=== PATIENT | female | born 1975 | race African-American/Black ===

== ENCOUNTER 2019-01-06 10:26 | Emergency (ER) | payer OTHER ==
--- OUTSIDE RECORDS SUMMARY | 2019-01-06 10:46 | XMS REPORT | Continuity of Care Document ---
:1975 External Reference #:[id number] Author Name Ramsey Davies Care Team Providers Name Role Phone Michael Tolliver III, MD Primary Care Physician Unavailable Payers Date Identification Numbers Payment Provider Subscriber Effective: 2011 Policy Number: [id number] [employer] Asael Aguayomili Group Number: [id number] [address] PayID: [id number] [place] [address] Expires: 2011 Policy Number: [id number] [employer] Asael Martinez Deirdre Group Number: [id number] [id number] PayID: [id number] [place] [address] Problems Active Problems Provider Date Hypothyroidism Mihir Elena M.D.,FACP Onset: 08/09/2010 Goiter Mihir Elena M.D.,FACP Onset: 08/09/2010 Abnormal cervical Papanicolaou smear Mihir Elena M.D.,FACP Onset: with positive human papillomavirus deoxyribonucleic acid test Gastroesophageal reflux disease Preston Aden M.D. Onset: 01/23/2017 Inactive Problems Hypothyroidism Mihir Elena M.D.,FACP Onset: 07/15/2010 Inactive: 02/17/2012 Non-toxic uninodular goiter Mihir Elena M.D.,FACP Onset: 07/15/2010 Inactive: 02/17/2012 Family History Date Family Member(s) Observation Comments Father Hypercholesterolemia Mother Lupus Mother Thyroid Disease First Sister Thyroid Disease Social History Type Date Description Comments Sex Unknown Marital Status Occupation Teacher Tobacco Use Start: Unknown Never Smoked Cigarettes ETOH Use 12/18/2015 Occasionally consumes wine Tobacco Use Start: Unknown Patient has never smoked Smoking Status Reviewed: 12/26/18 Patient has never smoked Allergies, Adverse Reactions, Alerts Active Allergies Reaction Severity Comments Date Ambien anger issues 01/11/2012 Inactive Allergies NKDA 01/21/2009 Medications Active Medications SIG Qnty Indications Ordering Provider Date Levothyroxine Sodium take 1 tablet by 90tabs E03.9 Kaley Prince MD 2016 mouth every day 75mcg Tablets on empty stomach History Medications Synthroid Take 1 Tablet By 30tabs Mihir Coley 08/09/2016 - 75mcg Mouth Every Day On Freddie Elena,[facility] 05/25/2017 Tablets Empty Stomach Omeprazole 1 by mouth every 30caps R07.9 Mihir Coley 04/04/2016 - 20mg day for 2 wks then Freddie Elena,[facility] 01/23/[address] ascencio Ciprofloxacin HCL 0.25 milliliters 2.500ml H66.002 Mihir Coley 2015 - left ear twice a Freddie Elena,[facility] 01/19/2016 0.3% Solution day for 5 days Ciprofloxacin HCL 0.25 ml Left ear 14units H66.002 Mihir Coley 2015 - q12h for 7 days Freddie Elena,[facility] 04/04/2016 0.2% Solution Levothyroxine Sodium 1 tablet by mouth 30tabs Mihir Coley 08/18/2015 - every day with Freddie Elena,[facility] 08/09/2016 75mcg Tablets empty stomach Levothyroxine Sodium take one tablet by 30tabs Rivera Roper, 05/12/2015 - mouth daily with Freddie 08/18/2015 50mcg Tablets empty stomach Azithromycin two tabs day one, 6tabs J06.9 Rivera Roper, 04/08/2015 - 250mg one daily till M.Vianca 05/12/2015 Tablets gone + Dha 1 po qd 90units 285.9 Mihir Coley 01/11/2012 - Freddie [facility] 04/08/2015 27-1&250mg Misc Trazodone HCL 1-2 po qhs 45tabs Mihir Coley 08/10/2011 - 50mg Freddie Elena,FACP 01/11/2012 Tablets Levothyroxine Sodium 1/2 tab po qd 45tabs Mihir Coley 07/06/2011 - Freddie Elena,FACP 07/02/2013 137mcg Tablets Vitamin D po qd 30caps Mihir Coley 07/06/2011 - 1000Unit Freddie [facility] 11/13/2012 Capsules Zolpidem Tartrate 1/2 to 1 tab qhs 20tabs 780.52 Mihir Coley 02/01/2011 - prn Freddie [facility]ena,[facility] 07/01/2011 10mg Tablets Betamethasone apply bid 50gm 691.8 Preston 07/28/2010 - Valerate Freddie Aden 02/01/2011 0.1% Cream Levothyroxine Sodium 1 tab qam 30tabs Mihir Coley 07/12/2010 - Freddie Elena,[facility] 07/06/2011 75mcg Tablets Iron 1 po bid 180tabs Unknown - 325(65Fe) mg 11/13/2012 Tablets Levothyroxine Sodium 1 po qd 90tabs Unknown - 05/12/2015 75mcg Tablets Amoxicillin 1 by mouth twice a Unknown - 875mg day 04/04/2016 Tablets Medications Administered in Office Medication SIG Qnty Indications Ordering Provider Date PPD Injection Roly Regan NP 08/25/2015 PPD Injection Nurse [facility] 10/09/2013 PPD Injection [facility] 10/25/2011 PPD Injection Nurse [facility] 10/25/2011 Immunizations CPT Code Status Date Vaccine Lot # [id number] Given 04/28/2013 Flu Vaccine NOS [id number] Given 02/10/2011 Influenza Virus 3Yrs & Over [id number] Given 07/09/2010 Influenza Virus 3Yrs & Over [id number] Given 03/10/2009 Influenza Virus 3Yrs & Over [id number] Vital Signs Date Vital Result Comment 12/26/2018 11:59am Height 62 inches 5'2" Weight 139.00 lb Heart Rate 64 /min BP Systolic 115 mmHg BP Diastolic 74 mmHg O2 % BldC Oximetry 97 % BMI (Body Mass Index) 25.4 kg/m2 07/31/2017 1:58pm Weight 135.00 lb BP Systolic 123 mmHg BP Diastolic 68 mmHg Body Temperature 98.2 F 01/23/2017 2:15pm Height 62 inches 5'2" Weight 134.00 lb Heart Rate 61 /min BP Systolic 114 mmHg BP Diastolic 62 mmHg Body Temperature 98.7 F O2 % BldC Oximetry 97 % BMI (Body Mass Index) 24.5 kg/m2 04/04/2016 2:27pm Weight 142.12 lb Heart Rate 50 /min BP Systolic Sitting 118 mmHg BP Diastolic Sitting 70 mmHg Body Temperature 98.4 F O2 % BldC Oximetry 98 % 01/19/2016 4:32pm Weight 137.75 lb Heart Rate 75 /min BP Systolic Sitting 95 mmHg BP Diastolic Sitting 62 mmHg Body Temperature 98.3 F O2 % BldC Oximetry 98 % 12/18/2015 3:23pm Height 62 inches 5'2" Weight 140.50 lb Heart Rate 79 /min BP Systolic 103 mmHg BP Diastolic 68 mmHg Body Temperature 98.9 F O2 % BldC Oximetry 98 % BMI (Body Mass Index) 25.7 kg/m2 08/25/2015 10:30am Height 62 inches 5'2" Weight 133.00 lb Heart Rate 66 /min BP Systolic Sitting 104 mmHg BP Diastolic Sitting 68 mmHg O2 % BldC Oximetry 97 % BMI (Body Mass Index) 24.3 kg/m2 07/30/2015 8:41am Height 62 inches 5'2" Weight 133.25 lb Heart Rate 88 /min BP Systolic Sitting 100 mmHg BP Diastolic Sitting 54 mmHg Body Temperature 97.5 F O2 % BldC Oximetry 98 % BMI (Body Mass Index) 24.4 kg/m2 05/12/2015 9:26am Height 62 inches 5'2" Weight 132.25 lb Heart Rate 72 /min BP Systolic Sitting 102 mmHg BP Diastolic Sitting 58 mmHg Body Temperature 96.9 F O2 % BldC Oximetry 98 % BMI (Body Mass Index) 24.2 kg/m2 04/08/2015 3:41pm Weight 1322.00 lb Heart Rate 97 /min Respiratory Rate 20 /min Body Temperature 98.0 F O2 % BldC Oximetry 98 % 07/02/2013 3:24pm Height 62 inches 5'2" Weight 168.50 lb 8.75 months Heart Rate 80 /min BP Systolic Sitting 100 mmHg BP Diastolic Sitting 64 mmHg BMI (Body Mass Index) 30.8 kg/m2 11/13/2012 3:11pm Weight 132.00 lb Heart Rate 83 /min BP Systolic Sitting 92 mmHg BP Diastolic Sitting 59 mmHg 01/11/2012 4:23pm Height 62 inches 5'2" Weight 134.00 lb Heart Rate 80 /min BP Systolic Sitting 100 mmHg BP Diastolic Sitting 62 mmHg Body Temperature 97.9 F lt ear BMI (Body Mass Index) 24.5 kg/m2 07/01/2011 9:34am Height 62.5 inches 5'2.50" Weight 130.25 lb Heart Rate 76 /min BP Systolic Sitting 90 mmHg BP Diastolic Sitting 60 mmHg BMI (Body Mass Index) 23.4 kg/m2 02/10/2011 9:31am Height 63 inches 5'3" Weight 131.75 lb Heart Rate 92 /min BP Systolic Sitting 102 mmHg BP Diastolic Sitting 70 mmHg BMI (Body Mass Index) 23.3 kg/m2 02/01/2011 1:43pm Height 63 inches 5'3" Weight 133.25 lb Heart Rate 76 /min BP Systolic Sitting 112 mmHg BP Diastolic Sitting 72 mmHg BMI (Body Mass Index) 23.6 kg/m2 08/09/2010 8:48am Heart Rate 78 /min BP Systolic 100 mmHg BP Diastolic 68 mmHg 07/28/2010 3:10pm Height 62 inches 5'2" Heart Rate 80 /min BP Systolic Sitting 104 mmHg BP Diastolic Sitting 70 mmHg 07/09/2010 11:57am Height 62 inches 5'2" Weight 144.00 lb Heart Rate 69 /min BP Systolic Sitting 110 mmHg BP Diastolic Sitting 70 mmHg Body Temperature 98.1 F O2 % BldC Oximetry 100 % BMI (Body Mass Index) 26.3 kg/m2 01/21/2009 2:49pm Height 62 inches 5'2" Weight 136.00 lb Heart Rate 64 /min BP Systolic Sitting 90 mmHg BP Diastolic Sitting 64 mmHg BMI (Body Mass Index) 24.9 kg/m2 Results Test Date Facility Test Result H/L Range Note Laboratory test 05/19/2017 [facility] TSH 0.58 mcIU/mL Normal 0.34-5.[address] ([place] [address] Stim Horm) [phone] Free T4 (Free Thyroxine) 1.02 ng/dL Normal 0.61-1.12 Laboratory 04/07/2016 [facility] TSH (Thyroid 0.49 Normal 0.34 -5.60 test finding [address] Stim Horm) mcIU/[place] [address] [phone] Free T4 (Free Thyroxine) 1.00 ng/dL Normal 0.61-1.12 Laboratory 07/22/2015 [facility] TSH (Thyroid 0.65 Normal 0.34 -5.60 test finding [address] Stim Horm) ?IU/[place] [address] [phone] Laboratory 05/06/2015 [facility] TSH (Thyroid 0.61 Normal 0.34 -5.60 test finding [address] Stim Horm) ?IU/[place] [address] [phone] Laboratory 08/21/2013 [facility] TSH (Thyroid 0.37 Normal 0.34 -5.60 test finding [address] Stimulating IU/[place] [address] Horm) [phone] CBC No Diff 07/10/2013 [facility] White Blood 7.3 4.8-10.8 DRIVE Count 10^3/[place] [address] [phone] Red Blood Count 4.39 10^6/uL 4.0-5.4 Hemoglobin 12.2 g/dL 12.0-16.0 Hematocrit 37 % 35-47 Mean Corpuscular Volume 85 fL 80-97 Mean Corpuscular Hemoglobin 28 pg 27-31 Mean Corpuscular HGB Conc 33 g/dL 31-36 Red Cell Distribution Width 15 % 10.5-15 Platelet Count 176 10^3/uL 150-450 Mean Platelet Volume 8 um3 7.4-10.4 Type & Screen 07/10/2013 [facility] Patient Blood Type [place] [address] [phone] Antibody Screen NEGATIVE Laboratory test 06/27/2013 [facility] Hemoglobin 0.[address] [place] [address] [phone] Laboratory test 05/15/2013 [facility] Amnisure No Membrane [address] Rupt <[place] [address] NOTE> [phone] Laboratory test 04/23/2013 [facility] Free T4 0.86 ng/mL 0.61 - [address] 1.24 [place] [address] [phone] TSH (Thyroid Stimulating Horm) 0.70 miu/mL 0.34-5.60 Laboratory test 01/22/2013 [facility] Free T4 0.82 ng/mL 0.61 -1.[address] [place] [address] [phone] TSH (Thyroid Stimulating Horm) 0.77 miu/mL 0.34-5.60 Thyroid Peroxidase Antibodies 0.4 IU/mL Less Than 9.0 Laboratory 11/13/2012 [facility] TSH (Thyroid 0.91 0.34-5.60 test finding Stimulating miu/[place] [address] Horm) [phone] Cytology 02/13/2012 [facility] Cytology [address] ------ [place] [address] <SEE NOTE> [phone] Lipid Profile 11/15/2011 [facility] Triglyceride 23 mg/dL Low 40-200 (Trig/Chol/HDL ) [place] [address] [phone] Cholesterol 185 mg/dL Less Than 200 4 High Density Lipoprotein 81 mg/dL High 40-60 5 Cholesterol/HDL Ratio 2.28 AVERAGE 1-4.44 Low Density Lipoprotein 99 mg/dL Less Than 100 6 Laboratory test finding 11/15/2011 [facility] Glucose 86 mg/dL 70-[address] [place] [address] [phone] TSH 1.11 MIU/ML 0.34-5.60 Comp Metabolic Panel 07/01/2011 [facility] Sodium 137 mmol/L 135-[address] [place] [address] [phone] Potassium 3.7 mmol/L 3.5-5.0 Chloride 104 mmol/L 101-111 Co2 (Carbon Dioxide) 28.0 mmol/L 22-32 Anion Gap 5.0 mmol/L 2-11 7 Glucose 62 mg/dL Low 70-100 BUN 12 mg/dL 6-24 Creatinine 0.6 mg/dL 0.50-1.40 One Over Creatinine 1.66 BUN/Creatinine Ratio 20.0 8-20 Calcium 8.7 mg/dL 8.1-9.9 Total Protein 6.9 GM/DL 6.2-8.1 Albumin 4.1 GM/DL 3.6-5.4 Globulin 2.8 GM/DL 2-4 Albumin/Globulin Ratio 1.5 1-3 Bilirubin Total 0.7 mg/dL 0.4-1.5 8 Alkaline Phosphatase 58 U/L 30-110 Alt (SGPT) 14 U/L 14-54 Ast (Sgot) 18 U/L 12-42 eGFR Non- 113.8 > 60 eGFR 146.3 > 60 9 Laboratory test 07/01/2011 [facility] Vitamin B12 478 pg/mL 180-[address] [place] [address] [phone] Vitamin D, 25 07/01/2011 [facility] 25-Hydroxy <4.0 ng/mL () Hydroxy [address] Vitamin D2 [place] [address] [phone] 25-Hydroxy Vitamin D3 24 ng/mL () 25-Hydroxy Vitamin D Total 24 ng/mL Abnormal () 10 Laboratory test 07/01/2011 [facility] TSH 0.27 MIU/ML Low 0.34 -5.[address] [place] [address] [phone] Thyroxine Free 0.98 ng/dL 0.61-1.24 T3 Total 1.10 NG/ML 0.5-1.7 CBC Auto Diff 07/01/2011 [facility] White Blood 3.7 CUMM Low 4.8-10.[address] [place] [address] [phone] Red Cell Count 4.10 CUMM Low 4.2-5.4 Hemoglobin 11.8 g/dL Low 12.0-16.0 Hematocrit 34 % Low 35-47 Mean Corpuscular Volume 83 um3 79-97 Mean Corpuscular Hemoglob 29 pg 27-31 Mean Corpuscular HGB Cone 35 g/dL 32-36 Redcell Distribution WDTH 14 % 10.5-15 Platelet Count 245 CUMM 150-450 Mean Platelet Volume 8.3 um3 7.4-10.4 Gran % 51.6 % 38-83 Lymph % 39.5 % 25-47 Mononuclear % 5.3 % 1-9 Eosinophil % 3.2 % 0-6 Basophil % 0.4 % 0-2 Abs Lymphs 1.5 1.0-4.8 Abs Mononuclear 0.2 0-0.8 Absolute Neutrophil Count 1.9 1.5-7.7 Abs Eosinophils 0.1 0-0.6 Abs Basophils 0 0-0.2 Laboratory test 07/01/2011 [facility] CPK (Creatine 70 U/L 0- [address] Kinase) [place] [address] [phone] Cytology 02/07/2011 [facility] Cytology -------- [address] -------- [place] [address] <SEE [phone] NOTE> Laboratory test 02/01/2011 [facility] TSH 2.74 0.34-5.[address] MIU/[place] [address] [phone] Thyroxine Free 0.99 ng/dL 0.61-1.24 Laboratory test 08/31/2010 [facility] TSH 1.52 MIU/ML 0.34- 5.[address] [place] [address] [phone] Thyroxine Free 0.92 ng/dL 0.61-1.24 Laboratory test 07/09/2010 [facility] TSH 96.55 MIU/ML High 0.34-5.[address] [place] [address] [phone] Thyroxine Free 0.19 NG/ML Low 0.61-1.24 CBC With 07/09/2010 [facility] White Blood 7.0 CUMM 4.8-10.[address] [place] [address] [phone] Red Cell Count 4.53 CUMM 4.2-5.4 Hemoglobin 12.4 g/dL 12.0-16.0 Hematocrit 37 % 35-47 Mean Corpuscular Volume 81 um3 79-97 Mean Corpuscular Hemoglob 27 pg 27-31 Mean Corpuscular HGB Cone 34 g/dL 32-36 Redcell Distribution WDTH 15 % 10.5-15 Platelet Count 256 CUMM 150-450 Mean Platelet Volume 7.9 um3 7.4-10.4 Gran % 64.9 % 38-83 Lymph % 26.6 % 25-47 Mononuclear % 5.5 % 1-9 Eosinophil % 2.6 % 0-6 Basophil % 0.4 % 0-2 Abs Lymphs 1.9 1.0-4.8 Abs Mononuclear 0.4 0-0.8 Absolute Neutrophil Count 4.5 1.5-7.7 Abs Eosinophils 0.2 0-0.6 Abs Basophils 0 0-0.2 Laboratory test 07/09/2010 [facility] Erythrocyte Sed 20 MM/HR High 0-[address] [place] [address] [phone] Hemoglobin Interpretation: % Cells Volume of Maternal Hemorrhage 0.0 - 0.0045 Up to 15 ml 0.0046 - 0.0090 15 - 30 ml 0.0091 - 0.0135 30 - 45 ml 0.0136 - 0.0180 45 - 60 ml 0.0181 - 0.0225 60 - 75 ml 2 No Membrane Rupture 3 --- RUN DATE: 02/17/12 [facility] NMI LIVE PAGE 1 RUN TIME: 818 Specimen Inquiry RUN USER: INTERFACE -- Name: VICTOR M CARY Status: REG REF Re02/13/12 Age/Sex: 36/F Unit#: [id number] Location: [facility] : 77 -- Specimen: [id number] SOUT Spec Date:02/13/12-[address]: Gabino Urias do, MD Spec Type: CYTOLOGY Received:02/14/12 Copies to: Mihir lucas MD SOURCE ECTOCERVICAL/ENDOCERVICAL Thin Prep with Reflex HPV Test PATIENT INFORMATION ACTUAL COLLECTION DATE: 02/13/12 ? No POST MENOPAUSAL? No HYSTERECTOMY? No PREVIOUS ABNORMAL PAP SMEARS No LAST MENSTRUAL PERIOD: 01/30/12 ADEQUACY OF SPECIMEN Satisfactory for evaluation * Transformation zone component identified * DIAGNOSIS NEGATIVE FOR INTRAEPITHELIAL LESION OR MALIGNANCY * NOTE Specimen sent to [facility] in [place], [place] on 02/14/12 by DB at 1224. Results will be reported separately in an addendum. ADDENDUM Addendum #1 Entered: 02/17/12 [facility] Human Papilloma Virus test results received with preparation and diagnosis completed by [facility], [place], [place]. Results: POSITIVE High Risk (for one or more of types 16, 18, 31, 33, 35, 39, 45, 51, 52, 56, 58, 59, 68) -- DEPARTMENT OF PATHOLOGY, [address] [place] [address] [facility] Permit #[id number] Trevin Renee M.D. Director Liyah Lizama M.D. K 12 Principal Dir sebastian -- -- RUN DATE: 02/17/12 [facility] NMI LIVE PAGE 2 RUN TIME: 818 Specimen Inquiry RUN USER: INTERFACE -- Name: VICTOR M CARY Status: REG REF Re02/13/12 Age/Sex: 36/F Unit#: [id number] Location: [facility] : 76 -- -- CONTINUED -- ADDENDUM (Continued) These high/indeterminate risk HPV types are associated with dysplasia and some cervical cancers. This test was developed and its performance characteristics determined by Laboratory Medicine and Pathology, [facility], [place], [place]. It has not been cleared or approved by the U.S. Food and Drug Administration. Test Performed by: [facility] Dpt of Lab Med and Pathology [address] [place] [address] [employer] Mechanic: Kyle Lindsey III, M.D. Original hard copy report from [facility] is available upon request by calling Pathology at [phone]. Addendum Review Jony WHITTINGTON([facility]) 02/17/12 -- This Pap test was evaluated with the assistance of the BaiduPrep Pap Test Imaging System. The Pap Smear is a screening test designed to aid in the detection of premalign ant and malignant conditions of the uterine cervix. It is not a diagnostic procedure a nd should not be used as the sole means of detecting cervical cancer. Both false- positiv e and false-negative reports do occur. Depending on your risk status, a Pap smear dianne uld be obtained and evaluated every one to three years. Final Interpretation electronically signed by: Joaquin ALEXANDRA([facility]) 02/14/12 142 2 -- -- DEPARTMENT OF PATHOLOGY, [address] [place] [address] [facility] Permit #[id number] Freddie Freeman M.D. Assistant Dir ector -- 4 CHOLESTEROL INTERPRETATION: Desirable: Less than 200 MG/DL Borderline-High Risk: 200-239 MG/DL High-Risk: 240 MG/DL and over 5 HDL INTERPRETATION: Undesirable: High Risk: Less than 40 MG/DL Desirable: Low Risk: Greater than 60 MG/DL 6 LDL INTERPRETATION: Low Risk Optimal Level: LDL Less than 100 MG/DL Near or Above Optimal: LDL 100-129 MG/DL Borderline High Risk: LDL 130-159 MG/DL High Risk: LDL 160-189 MG/DL Very High Risk: LDL Greater than 189 MG/DL 7 Anion gap measurement may be of limited value in the presence of any alkalosis, especially in a combined acid base disorder. . 8 A metabolite of Naproxen, O-desmethylnaproxen, has been shown to interfere with the Jendrassik-Chula method for measuring total bilirubin. Samples from patients who have taken Naproxen have shown spurious elevation in total bilirubin levels. 9 Because ethnic data is not always readily available, this report includes an eGFR for both -Americans and non- Americans. The National Kidney Disease Education Program (NKDEP) does not endorse the use of the MDRD equation for patients that are not between the ages of 18 and 70, are , have extremes of body size, muscle mass, or nutritional status, or are non- or non-. According to the National Kidney Foundation, irrespective of diagnosis, the stage of the disease is based on the level of kidney function: Stage Description GFR(mL/min/1.73 m(2)) 1 Kidney damage with normal or decreased GFR 90 2 Kidney damage with mild decrease in GFR 60-89 3 Moderate decrease in GFR 30-59 4 Severe decrease in GFR 15-29 5 Kidney failure <15 (or dialysis) 10 Interpretation: 10-24 (mild to moderate deficiency) -- REFERENCE VALUE -- 25-HYDROXY D TOTAL (D2+D3) Optimum levels in the normal population are 25-80 Test Performed by: [facility] Dpt of Lab Med and Pathology [address] [place] [address] [employer] Mechanic: Kyle Lindsey III, M.D. 11 ---- RUN DATE: 02/14/11 [facility] NMI LIVE PAGE 1 RUN TIME: 846 Specimen Inquiry RUN USER: INTERFACE -- Name: VICTOR M CARY Status: REG REF Re02/07/11 Age/Sex: 35/F Unit#: [id number] Location: [facility] : 76 -- Specimen: [id number] SOUT Spec Date: 02/07/[address]: Gabino wallace MD Spec Type: CYTOLOGY Received: 02/08/11-32 Copies to: Mihir lucas MD SOURCE ECTOCERVICAL/ENDOCERVICAL Thin Prep with Reflex HPV Test PATIENT INFORMATION ACTUAL COLLECTION DATE: 02/07/11 ? No POST MENOPAUSAL? No HYSTERECTOMY? No PREVIOUS ABNORMAL PAP SMEARS No LAST MENSTRUAL PERIOD: 01/24/11 ADEQUACY OF SPECIMEN Satisfactory for evaluation * Transformation zone component identified * DIAGNOSIS NEGATIVE FOR INTRAEPITHELIAL LESION OR MALIGNANCY * NOTE Specimen sent to [facility] in [place], [place] on 02/08/11 by O at 1108. Results will be reported separately in an addendum. ADDENDUM Addendum #1 Entered: 02/14/1180 [facility] Human Papilloma Virus test results received with preparation and diagnosis completed by [facility], [place], [place]. Results: NEGATIVE High Risk (for types 16, 18, 31, 33, 35, 39, 45, 51, 52, 56, 58, 59, 68) This test was developed and its performance characteristics determined by -- DEPARTMENT OF PATHOLOGY, [address] [place] [address] [facility] Permit #[id number] Freddie Freeman M.D. K 12 Principal Dir sebastian -- -- RUN DATE: 02/14/11 [facility] NMI LIVE PAGE 2 RUN TIME: 1022 Specimen Inquiry RUN USER: INTERFACE -- Name: VICTOR M CARY Status: REG REF Re02/07/11 Age/Sex: 35/F Unit#: [id number] Location: [facility] : 76 -- -- CONTINUED -- ADDENDUM (Continued) Laboratory Medicine and Pathology, [place], [place]. It has not been cleared or approved by the U.S. Food and Drug Administration. Test Performed by: [facility] Dpt of lab Med and Pathology [address] [place] [address] [employer] Mechanic: Kyle Lindsey III, M.D. Original hard copy report from [facility] is available upon request by calling Pathology at [phone]. Addendum Review Jony WHITTINGTON([facility]) 02/14/11 -- This Pap test was evaluated with the assistance of the ThinPrep Pap Test Imaging System. The Pap Smear is a screening test designed to aid in the detection of premalign ant and malignant conditions of the uterine cervix. It is not a diagnostic procedure a nd should not be used as the sole means of detecting cervical cancer. Both false- positiv e and false-negative reports do occur. Depending on your risk status, a Pap smear dianne uld be obtained and evaluated every one to three years. Initial evaluation performed by Jony WHITTINGTON([facility]) 02/08/11 Final Interpretation electronically signed by: Jony WHITTINGTON CT([facility]) 02/08/11 1410 -- -- DEPARTMENT OF PATHOLOGY, [address] [place] [address] [facility] Permit #[id number] Trevin Renee M.D. Director Liyah Lizama M.D. K 12 Principal Dir sebastian -- Procedures Date Code Description Status 04/04/2016 30423 EKG Tracing & Interpretation Completed Encounters Type Date Location Provider Dx Diagnosis Office Visit 07/31/2017 [facility] Jennifer Marie, B34.9 Viral infection, 2:00p Medicine - Suite ANIMAL CARE ASSISTANT unspecified R Office Visit 01/23/2017 [facility] Preston Aden, E03.9 Hypothyroidism, 2:00p Medicine - Suite M.DRaúl unspecified R Z00.00 Encntr for general adult medical exam w/o abnormal findings K21.9 Gastro-esophageal reflux disease without esophagitis Office Visit 04/04/2016 2:20p [facility] Mihir Coley R07.9 Chest pain, Evaristo Elena M.D.,FACP unspecified Suite R R13.14 Dysphagia, pharyngoesophageal phase Office Visit 01/19/2016 4:20p [facility] Mihir Coley H66.012 Acute suppr Evaristo Elena M.D.,FACP [facility], [facility] Office Visit 12/18/2015 3:00p [facility] Mihir Coley E03.9 Hypothyroidism, Evaristo Elena M.D.,FACP unspecified Suite R Office Visit 08/25/2015 10:40a [facility] Roly Regan, Z02.1 Encounter for Medicine - ANIMAL CARE ASSISTANT pre-employment Suite R examination E03.9 Hypothyroidism, unspecified Z11.1 Encounter for screening for respiratory tuberculosis Office Visit 07/30/2015 8:40a [facility] Rivera Roper, E03.8 Other specified Medicine - M.D. hypothyroidism [address] E03.9 Hypothyroidism, unspecified Office Visit 05/12/2015 9:20a [facility] Rivera Roper, E03.8 Other specified Medicine - M.D. hypothyroidism [address] E03.9 Hypothyroidism, unspecified Office Visit 04/08/2015 3:40p [facility] Rivera Roper, J06.9 Acute upper Medicine - Suite M.D. respiratory R infection, unspecified E03.8 Other specified hypothyroidism E03.9 Hypothyroidism, unspecified Office Visit 07/02/2013 3:30p [facility] Danay Connolly, 692.2 Dermatitis & Other Medicine - N.P. Eczema Contact Due [facility] To Solvents Office Visit 11/13/2012 3:10p [facility] Stacia Glaser, 244.8 Hypothyroidism Other Medicine - [facility] 01/11/2012 4:00p [facility] Mihir Coley V70.0 Examination General Evaristo Elena M.D.,FACP Medical Routine AT [facility] 244.8 Hypothyroidism Other Spec 285.9 Anemia Unspec Office Visit 10/25/2011 10:00a [facility] Nurse Visit V74.1 Screening Medicine - Creek Examination [facility] Pulmonary Tuberculosis Office Visit 07/01/2011 9:40a [facility] Mihir Coley 728.87 Muscle Weakness Medicine - [place] [facility] 780.79 Malaise And Fatigue Other 244.8 Hypothyroidism Other Spec Office Visit 02/10/2011 8:50a DO Not Use Operations Consultant Mihir Coley 780.52 Insomnia AT [facility] Freddie Elena,FACP Unspecified 592.0 Calculus Of Kidney V04.81 Need For Prophylactic Vaccination & Inoculation/Influenza Office Visit 02/01/2011 1:45p DO Not Use Operations Consultant Danay Connolly, 780.52 Insomnia AT [facility] N.P. Unspecified 244.8 Hypothyroidism Other Spec Office Visit 08/09/2010 8:40a DO Not Use Operations Consultant Mihir Coley 244.8 Hypothyroidism Other AT [facility] Freddie Elena,FACP Spec 240.9 Goiter Unspec Office Visit 07/28/2010 3:00p DO Not Use Operations Consultant Preston Aden, 691.8 Dermatitis AT [facility] Freddie Atopic & Related Conditions Other Office Visit 07/09/2010 11:40a DO Not Use Operations Consultant Mihir Coley 079.99 Viral Infection AT [facility] Freddie Elena,FACP Unspec 242.00 Goiter Toxic Diffuse W/O Thyrotoxic Crisis Or Storm V04.81 Need For Prophylactic Vaccination & Inoculation/Influenza Office Visit 01/21/2009 3:00p DO Not Use Operations Consultant Evonne Smith PA 724.5 Backache Unspec AT [facility] 009.0 Infectious Colitis Enteritis & Gastroenteritis Plan of Treatment Future Appointment(s):06/05/2019 2:40 pm - MELCHOR Yuan at [facility] - LACY YuanPE03.9 Hypothyroidism, unspecifiedComments:Symptoms of low thyroid level (hypothyroidism)When thyroid hormone levels are too low, the body??s cells can??t get enough thyroid hormone and the body??s processes start slowing down. As the body slows, you may feel colder, tire more easily, your skin gets drier tender, you may become forgetful and depressed, and get constipated.Follow up:Pt needs yearly PE at her convenience.R14.3 FlatulenceComments:Discussed that likely treated to some food sensitivity.Try eliminating certain food groups as we discussed to see if symptoms improveIf no effect, please give me a call and I order some lab test to rule out infection Follow up with Dr. Mckeon for gynecological exam
[2019-01-06 12:00] LABS: ABS Eosinophils 0.1 10^3/ul (0-0.6); ABS Lymphocytes 1.1 10^3/ul (1.0-4.8); ABS Monocytes 0.2 10^3/ul (0-0.8); ABS Neutrophils 3.1 10^3/ul (1.5-7.7); Eosinophil % 2.2 %; Hematocrit 36 % (35-47); Hemoglobin 11.8 g/dL (12.0-16.0); Mean Corpuscular HGB Conc 33 g/dL (31-36); Mean Corpuscular Hemoglobin 27 pg (27-31); Mean Corpuscular Volume 84 fL (80-97); Mean Platelet Volume 7.3 fL (7.4-10.4); Nucleated Red Blood Cells % 0.1; Platelet Count 239 10^3/uL (150-450); Red Blood Count 4.31 10^6 /uL (3.70-4.87); Red Cell Distribution Width 14 % (10-15); White Blood Count 4.5 10^3/uL (3.5-10.8)
[2019-01-06 12:17] LABS: Activated Partial Thrombo Time 38.9 seconds (26.0-38.0); Albumin 4.3 g/dL (3.2-5.2); Albumin/Globulin Ratio 1.5 (1-3); BUN/Creatinine Ratio 18.5 (8-20); Calcium 9.4 mg/dL (8.6-10.3); EGFR African American 120.9 (>60); Globulin 2.9 g/dL (2-4); Magnesium 1.8 mg/dL (1.9-2.7); Potassium 3.6 mmol/L (3.5-5.0); Total Bilirubin 0.7 mg/dL (0.2-1.0); Total Protein 7.2 g/dL (6.4-8.9)
[2019-01-06 12:24] LABS: HCG Pregnancy < 0.60 mIU/mL
--- NOTE | 2019-01-06 12:40 | ED ---
HPI Chest Pain - HPI Summary HPI Summary: This patient is a 43 year old F presenting to ED with a chief complaint of mid- sternal CP and tightness since two days ago. The CP begins on her anterior ribs , and radiates across to the back. Patient states she feels like her chest is being compressed and that it feels tight. She reports earlier she could not take deep breaths due to pain. Previous to the CP, patient reports having abdominal bloating, but denies vomiting or diarrhea. The patient rates the pain 7/10 in severity, sharp and pleuritic. Symptoms aggravated by sitting up. Symptoms alleviated by nothing. Patient reports mild SOB secondary to inability to take a full breath. Patient denies congestion, cough, fever, recent illness. Denies history of DVT, PE, MO, CHF. Patient reports a family history of lupus Patient is not on control. - History of Current Complaint Chief Complaint: EDChestPainROMI Time Seen by Provider: 01/06/19 11:29 Hx Obtained From: Patient Onset/Duration: Started Days Ago - 2 days, Still Present Timing: Constant, Lasting Days - Since 2 days ago Initial Severity: Moderate Current Severity: Moderate Pain Intensity: 7 Pain Scale Used: 0-10 Numeric Chest Pain Location: Mid Sternal Chest Pain Radiates: Yes Chest Pain Radiates To:: Back Character: Tightness Aggravating Factor(s): Position - Sitting up Alleviating Factor(s): Nothing Associated Signs and Symptoms: Positive: Chest Pain, Shortness of Breath, Abdominal Pain - Bloating - Allergy/Home Medications Allergies/Adverse Reactions: Allergies Allergy/AdvReac Type Severity Reaction Status Date / Time No Known Allergies Allergy Verified 07/10/13 15:30 PMH/Surg Hx/FS Hx/Imm Hx Endocrine/Hematology History: Reports: Hx Thyroid Disease Sensory History: Denies: Hx Legally Blind, Hx Deafness Opthamlomology History: Denies: Hx Legally Blind EENT History: Denies: Hx Deafness Infectious Disease History: No Infectious Disease History: Denies: Traveled Outside the [place] in Last 30 Days - Family History Known Family History: Positive: Other - Lupus, HLD, negative DVT/PE - Social History Alcohol Use: None Hx Substance Use: No Substance Use Type: Reports: None Hx Tobacco Use: No Smoking Status (MU): Never Smoked Tobacco Review of Systems Positive: Chest Pain - Mid-sternal Positive: Shortness Of Breath Positive: Abdominal Pain - Bloating All Other Systems Reviewed And Are Negative: Yes Physical Exam - Summary Physical Exam Summary: Constitutional: Well-developed, Well-nourished, Alert. (-) Distressed Skin: Warm, Dry HENT: Normocephalic; Atraumatic Eyes: Conjunctiva normal Neck: Musculoskeletal ROM normal neck. (-) JVD, (-) Stridor, (-) Nuchal rigidity Cardio: Rhythm regular, rate normal, Heart sounds normal; Intact distal pulses; Radial pulses are 2+ and symmetric. (-) Murmur Pulmonary/Chest wall: Effort normal. (-) Respiratory distress, (-) Wheezes, (-) Rales Abd: Soft, (-) tenderness, (-) Distension, (-) Guarding, (-) Rebound Musculoskeletal: (-) Edema Lymph: (-) Cervical adenopathy Neuro: Alert, Oriented x3 Psych: Mood and affect Normal Triage Information Reviewed: Yes Vital Signs On Initial Exam: Initial Vitals Temp Pulse Resp BP Pulse Ox 98.0 F 88 16 121/66 98 01/06/19 10:36 01/06/19 10:36 01/06/19 10:36 01/06/19 10:36 01/06/19 10:36 Vital Signs Reviewed: Yes Diagnostics - Vital Signs Vital Signs Temp Pulse Resp BP Pulse Ox 01/06/19 11:27 68 20 98 01/06/19 10:36 98.0 F 88 16 121/66 98 - Laboratory Lab Results: Lab Results 01/06/19 01/06/19 01/06/19 Range/Units 11:49 11:49 11:49 WBC 4.5 (3.5-10.8) 10^3/uL RBC 4.31 (3.70-4.87) 10^6 /uL Hgb 11.8 L (12.0-16.0) g/dL Hct 36 (35-47) % MCV 84 (80-97) fL MCH 27 (27-31) pg MCHC 33 (31-36) g/dL RDW 14 (10-15) % Plt Count 239 (150-450) 10^3/uL MPV 7.3 L (7.4-10.4) fL Neut % (Auto) 68.4 % Lymph % (Auto) 24.0 % Arthur % (Auto) 5.1 % Eos % (Auto) 2.2 % Baso % (Auto) 0.3 % Absolute Neuts (auto) 3.1 (1.5-7.7) 10^3/ul Absolute Lymphs (auto) 1.1 (1.0-4.8) 10^3/ul Absolute Monos (auto) 0.2 (0-0.8) 10^3/ul Absolute Eos (auto) 0.1 (0-0.6) 10^3/ul Absolute Basos (auto) 0.0 (0-0.2) 10^3/ul Absolute Nucleated RBC 0.0 10^3/ul Nucleated RBC % 0.1 INR (Anticoag Therapy) 1.00 (0.82-1.09) APTT (26.0-38.0) seconds D-Dimer, Quantitative (Less Than 230) ng/mL Sodium 136 (135-145) mmol/L Potassium 3.6 (3.5-5.0) mmol/L Chloride 102 (101-111) mmol/L Carbon Dioxide 29 (22-32) mmol/L Anion Gap 5 (2-11) mmol/L BUN 12 (6-24) mg/dL Creatinine 0.65 (0.51-0.95) mg/dL Est GFR ( Amer) 120.9 (>60) Est GFR (Non-Af Amer) 100.0 (>60) BUN/Creatinine Ratio 18.5 (8-20) Glucose 103 H (70-100) mg/dL Lactic Acid (0.5-2.0) mmol/L Calcium 9.4 (8.6-10.3) mg/dL Magnesium (1.9-2.7) mg/dL Total Bilirubin 0.70 (0.2-1.0) mg/dL AST 17 (13-39) U/L ALT 15 (7-52) U/L Alkaline Phosphatase 53 (34-104) U/L Troponin I 0.00 (<0.04) ng/mL B-Natriuretic Peptide (<=100) pg/mL Total Protein 7.2 (6.4-8.9) g/dL Albumin 4.3 (3.2-5.2) g/dL Globulin 2.9 (2-4) g/dL Albumin/Globulin Ratio 1.5 (1-3) Beta HCG, Quant mIU/mL 01/06/19 01/06/19 01/06/19 Range/Units 11:49 11:49 11:49 WBC (3.5-10.8) 10^3/uL RBC (3.70-4.87) 10^6 /uL Hgb (12.0-16.0) g/dL Hct (35-47) % MCV (80-97) fL MCH (27-31) pg MCHC (31-36) g/dL RDW (10-15) % Plt Count (150-450) 10^3/uL MPV (7.4-10.4) fL Neut % (Auto) % Lymph % (Auto) % Arthur % (Auto) % Eos % (Auto) % Baso % (Auto) % Absolute Neuts (auto) (1.5-7.7) 10^3/ul Absolute Lymphs (auto) (1.0-4.8) 10^3/ul Absolute Monos (auto) (0-0.8) 10^3/ul Absolute Eos (auto) (0-0.6) 10^3/ul Absolute Basos (auto) (0-0.2) 10^3/ul Absolute Nucleated RBC 10^3/ul Nucleated RBC % INR (Anticoag Therapy) (0.82-1.09) APTT 38.9 H (26.0-38.0) seconds D-Dimer, Quantitative < 200 (Less Than 230) ng/mL Sodium (135-145) mmol/L Potassium (3.5-5.0) mmol/L Chloride (101-111) mmol/L Carbon Dioxide (22-32) mmol/L Anion Gap (2-11) mmol/L BUN (6-24) mg/dL Creatinine (0.51-0.95) mg/dL Est GFR ( Amer) (>60) Est GFR (Non-Af Amer) (>60) BUN/Creatinine Ratio (8-20) Glucose (70-100) mg/dL Lactic Acid 1.0 (0.5-2.0) mmol/L Calcium (8.6-10.3) mg/dL Magnesium 1.8 L (1.9-2.7) mg/dL Total Bilirubin (0.2-1.0) mg/dL AST (13-39) U/L ALT (7-52) U/L Alkaline Phosphatase (34-104) U/L Troponin I (<0.04) ng/mL B-Natriuretic Peptide (<=100) pg/mL Total Protein (6.4-8.9) g/dL Albumin (3.2-5.2) g/dL Globulin (2-4) g/dL Albumin/Globulin Ratio (1-3) Beta HCG, Quant < 0.60 mIU/mL 01/06/19 Range/Units 11:49 WBC (3.5-10.8) 10^3/uL RBC (3.70-4.87) 10^6 /uL Hgb (12.0-16.0) g/dL Hct (35-47) % MCV (80-97) fL MCH (27-31) pg MCHC (31-36) g/dL RDW (10-15) % Plt Count (150-450) 10^3/uL MPV (7.4-10.4) fL Neut % (Auto) % Lymph % (Auto) % Arthur % (Auto) % Eos % (Auto) % Baso % (Auto) % Absolute Neuts (auto) (1.5-7.7) 10^3/ul Absolute Lymphs (auto) (1.0-4.8) 10^3/ul Absolute Monos (auto) (0-0.8) 10^3/ul Absolute Eos (auto) (0-0.6) 10^3/ul Absolute Basos (auto) (0-0.2) 10^3/ul Absolute Nucleated RBC 10^3/ul Nucleated RBC % INR (Anticoag Therapy) (0.82-1.09) APTT (26.0-38.0) seconds D-Dimer, Quantitative (Less Than 230) ng/mL Sodium (135-145) mmol/L Potassium (3.5-5.0) mmol/L Chloride (101-111) mmol/L Carbon Dioxide (22-32) mmol/L Anion Gap (2-11) mmol/L BUN (6-24) mg/dL Creatinine (0.51-0.95) mg/dL Est GFR ( Amer) (>60) Est GFR (Non-Af Amer) (>60) BUN/Creatinine Ratio (8-20) Glucose (70-100) mg/dL Lactic Acid (0.5-2.0) mmol/L Calcium (8.6-10.3) mg/dL Magnesium (1.9-2.7) mg/dL Total Bilirubin (0.2-1.0) mg/dL AST (13-39) U/L ALT (7-52) U/L Alkaline Phosphatase (34-104) U/L Troponin I (<0.04) ng/mL B-Natriuretic Peptide 38 (<=100) pg/mL Total Protein (6.4-8.9) g/dL Albumin (3.2-5.2) g/dL Globulin (2-4) g/dL Albumin/Globulin Ratio (1-3) Beta HCG, Quant mIU/mL Result Diagrams: 01/06/19 11:49 01/06/19 11:49 Lab Statement: Any lab studies that have been ordered have been reviewed, and results considered in the medical decision making process. - Radiology CXR Radiology Interpretation Completed By: Radiologist Summary of Radiographic Findings: No evidence for acute intrathoracic disease. Dr. Sung has reviewed this radiology report. - EKG 1029 Cardiac Rate: NL - 71 BPM EKG Rhythm: Sinus Rhythm Summary of EKG Findings: NSR at 71 BPM, T wave inversion in V1. Re-Evaluation - Re-Evaluation First Eval Re-Evaluation Time: 13:31 Comment: Discussed results with patient. Mg repleted. Given toradol for possible MSK pain. Patient will be discharged home with dx of pleuritic CP. Patient understands and agrees with this plan. Advised patient on concerning symptoms and gave return precautions. Chest Pain Course/Dx - Course Course Of Treatment: 43 y/o F p/w pleuritic CP. Chest Pain DDX: The patient is well appearing, with stable vitals. Given the patient's clinical presentation, highest on differential is atypical CP. Although less likely, differential also includes the following: --Pneumothorax: Equal breath sounds, story inconsistent since gradual onset of symptoms. CXR shows no evidence of pneumothorax. Unlikely. --Mediastinitis or esophageal rupture: The history is not consistent, as the patient has had no recent history of significant wretching, instrumentation, or mediastinal surgeries. Unlikely. --Aortic dissection: The patient does not describe the classical tearing chest pain radiating into the back, and the CXR does not show mediastinal widening or other signs of aortic dissection. Unlikely. --PE: Vitals wnl (not hypoxic, tachycardic or tachypneic). D dimer <200. --ACS: The initial EKG shows no ischemic changes. The initial troponin is not elevated. -- pericarditis: She denies alleviation of symptoms with laying flat, only minimal aggravation of symptoms with sitting up, no recent illnesses to suggest pericarditis, no friction rub on exam. No ST elevation on EKG - Diagnoses Provider Diagnoses: Pleuritic chest pain Discharge - Sign-Out/Discharge Documenting (check all that apply): Patient Departure - Discharge Patient Received Moderate/Deep Sedation with Procedure: No - Discharge Plan Condition: Stable Disposition: HOME Patient Education Materials: Chest Pain (ED) Referrals: Mihir Elena MD [Primary Care Provider] - 3 Days Additional Instructions: You were seen in the emergency department for chest pain. Your heart enzyme was normal, your number for blood clots was normal. Your chest x-ray did not show any abnormalities. EKG did not show any evidence of heart attack. Please follow up with her doctor, and return for worsening pain, trouble breathing, tachycardia, fevers or if you are concerned. If any studies were not completed at the time of discharge you will be called with the relevant results. - Billing Disposition and Condition Condition: STABLE Disposition: Home - Attestation Statements Document Initiated by Ting: Yes Documenting Scribe: Wilber Walton Provider For Whom Ting is Documenting (Include Credential): Juan Carlos Sung MD Scribe Attestation: I, Wilber Walton, scribed for Juan Carlos Sung MD on 01/06/19 at 1636. Scribe Documentation Reviewed: Yes Provider Attestation: The documentation as recorded by the Wilber costello accurately reflects the service I personally performed and the decisions made by me, Juan Carlos Sung MD Status of Scribe Document: Viewed
[2019-01-06] MEDS ORDERED: Ketorolac TAB * 10 MG TAB PO ONE (13:00)
[2019-01-06] MEDS ORDERED: Magnesium Oxide TAB* 400 MG PO ONE (13:33)
[2019-01-06 14:00] VITALS: BP 100/66
== END 2019-01-06 14:02 | disposition home or self-care (01) ==
LOC: ED 10:26
DX: R07.81 Pleurodynia (principal); R06.02 Shortness of breath; R14.0 Abdominal distension (gaseous)
CPT/HCPCS: 36415; 71046; 80053; 83605; 83735; 83880; 84484; 84702; 85025; 85379; 85610; 85730; 93005; 99282

== ENCOUNTER 2019-08-16 08:16 | Emergency (ER) | payer OTHER ==
--- OUTSIDE RECORDS SUMMARY | 2019-08-16 08:23 | XMS REPORT | Continuity of Care Document ---
:1975 External Reference #:[id number] Author Name Olinda Shields N.P. (transmitted by agent of provider Betty Bang) Address [address], [place] [address] Care Team Providers Name Role Phone Manuel Anne MD - Care Team Information Legal Department Manager [phone] Otolaryngology Michael Tolliver III, MD - Internal Care Team Information Legal Department Manager Medicine Problems Active Problems Provider Date Hypothyroidism Mihir Elena M.D.,FACP Onset: 08/09/2010 Goiter Mihir Elena M.D.,FACP Onset: 08/09/2010 Abnormal cervical Papanicolaou smear Mihir Elena M.D.,FACP Onset: with positive human papillomavirus deoxyribonucleic acid test Gastroesophageal reflux disease Preston Aden M.D. 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 On Empty Stomach Medications Administered in Office Medication SIG Qnty Indications Ordering Provider Date PPD Injection Roly Regan NP 08/25/2015 PPD Injection Nurse Visit [place] 10/09/2013 PPD Injection Nurse Visit [facility] 10/25/2011 PPD Injection Nurse Visit [place] 10/25/2011 Immunizations CPT Code Status Date Vaccine Lot # [id number] Given 04/28/2013 Flu Vaccine NOS [id number] Given 02/10/2011 Influenza Virus 3Yrs & Over [id number] Given 07/09/2010 Influenza Virus 3Yrs & Over [id number] Given 03/10/2009 Influenza Virus 3Yrs & Over [id number] Vital Signs Date Vital Result Comment 08/09/2019 3:08pm Height 62 inches 5'2" Weight 144.12 lb Heart Rate 71 /min BP Systolic Sitting 99 mmHg BP Diastolic Sitting 64 mmHg Body Temperature 98.8 F O2 % BldC Oximetry 97 % BMI (Body Mass Index) 26.4 kg/m2 12/26/2018 11:59am Height 62 inches 5'2" Weight 139.00 lb Heart Rate 64 /min BP Systolic 115 mmHg BP Diastolic 74 mmHg O2 % BldC Oximetry 97 % BMI (Body Mass Index) 25.4 kg/m2 Results Test Acquired Date Facility Test Result H/L Range Note Influenza A & B 08/09/2019 [facility] Flu AB (SEE NOTE) [address] [place] [address] [phone] Influenza A Molecular Negative Negative Influenza B Molecular Negative Negative 2 CBC Auto 08/09/2019 [facility] White Blood 3.7 10^3/uL Normal 3.5-10.[address] [place] [address] [phone] Red Blood Count 4.31 10^6/uL Normal 3.70-4.87 Hemoglobin 11.8 g/dL Low 12.0-16.0 Hematocrit 35 % Normal 35-47 Mean Corpuscular Volume 81 fL Normal 80-97 Mean Corpuscular Hemoglobin 27 pg Normal 27-31 Mean Corpuscular HGB Conc 34 g/dL Normal 31-36 Red Cell Distribution Width 15 % Normal 10-15 Platelet Count 267 10^3/uL Normal 150-450 Mean Platelet Volume 8.0 fL Normal 7.4-10.4 Abs Neutrophils 2.1 10^3/uL Normal 1.5-7.7 Abs Lymphocytes 1.3 10^3/uL Normal 1.0-4.8 Abs Monocytes 0.2 10^3/uL Normal 0-0.8 Abs Eosinophils 0.1 10^3/uL Normal 0-0.6 Abs Basophils 0.0 10^3/uL Normal 0-0.2 Abs Nucleated RBC 0.0 10^3/uL Granulocyte % 56.4 % Lymphocyte % 35.1 % Monocyte % 5.9 % Eosinophil % 2.2 % Basophil % 0.4 % Nucleated Red Blood Cells % 0.1 Laboratory 08/09/2019 [facility] TSH (Thyroid 1.50 Normal 0.34 -5.60 test finding [address] Stim Horm) mcIU/[place] [address] [phone] Free T4 (Free Thyroxine) 0.91 ng/dL Normal 0.61-1.12 1 Suboptimal collection technique may reduce sensitivity of test. Refer to the [facility] Test Catalog for collection information: [email or web address] As with all diagnostic procedures, the laboratory results obtained should be used in conjunction with other clinical information available to the physician, including confirmation by another method, as applicable. 2 Cardiac Cath Technologist: [id number] Procedures Description No Information Available Medical Devices Description No Information Available Encounters Type Date Location Provider Dx Diagnosis Office Visit 08/09/2019 [facility] Internal Olinda Shields, R53.81 Other malaise 3:[facility] Ass[facility] Date Code Description Provider 08/09/2019 R53.81 Other malaise Olinda Shields, N.P. Plan of Treatment Future Appointment(s):09/18/2019 1:20 pm - MELCHOR Yuan at [facility] - Olinda Shields, N.P.R53.81 Other malaiseComments:I believe you have a nonspecific viral illness. Your fever seems to have gone down. I sent a flu swab for you. If you develop a cough, please contact the office. Functional Status Description No Information Available Mental Status Description No Information Available Referrals Description No Information Available
[2019-08-16 09:07] VITALS: BP 104/71
[2019-08-16 09:13] LABS: Influenza A Molecular Negative (Negative); Influenza B Molecular Negative (Negative)
--- NOTE | 2019-08-16 09:22 | UC ---
Throat Pain/Nasal Get HPI - HPI Summary HPI Summary: 44-year-old woman comes in with chief complaint of upper respiratory tract infection symptoms and a sore throat. Patient's been sick for 8 days. She does have rhinorrhea and cough. Throat started hurting a lot more the last couple of days she talked to her primary care doctor sent a prescription in for [place] azithromycin. Yesterday she had bodyaches. Today she feels better than yesterday. No known contact with anybody with Covid 19. - History of Current Complaint Chief Complaint: UCGeneralIllness Stated Complaint: FEVER HEADACHE BODYACHES SORE THROAT Time Seen by Provider: 08/16/19 08:33 Hx Last Menstrual Period: currently Pain Intensity: 5 - Allergies/Home Medications Allergies/Adverse Reactions: Allergies Allergy/AdvReac Type Severity Reaction Status Date / Time zolpidem [From Ambien] AdvReac aggressiven Verified 08/16/19 08:30 ess Home Medications: Home Medications Acetaminophen [Tylenol] 2 tab PO ONCE PRN 08/16/19 [History Confirmed 08/16/19] Iron 08/16/19 [History] Levothyroxine TAB* [Synthroid TAB*] 75 mcg PO DAILY 08/16/19 [History Confirmed 08/16/19] PMH/Surg Hx/FS Hx/Imm Hx Previously Healthy: Yes Endocrine History: Hypothyroidism - Surgical History Surgical History: None - Family History Known Family History: Positive: Other - Lupus, HLD, negative DVT/PE - Social History Alcohol Use: Occasionally Substance Use Type: None Smoking Status (MU): Never Smoked Tobacco - Immunization History Most Recent Influenza Vaccination: 2012 Most Recent Tetanus Shot: 2013 recieved today 07/12/13 Most Recent Pneumonia Vaccination: n/a Review of Systems All Other Systems Reviewed And Are Negative: Yes Constitutional: Positive: Other - SEE HPI Skin: Positive: Negative Eyes: Positive: Negative ENT: Positive: Sore Throat, Nasal Discharge, Sinus Congestion Respiratory: Positive: Cough Cardiovascular: Positive: Negative Gastrointestinal: Positive: Negative Motor: Positive: Negative Neurovascular: Positive: Negative Musculoskeletal: Positive: Negative Neurological/Mental Status: Positive: Negative Psychological: Positive: Negative Is Patient Immunocompromised?: No Physical Exam - Summary Physical Exam Summary: Physical exam was restricted as the patient was interviewed telemedicine in clinic. Triage Information Reviewed: Yes Appearance: No Pain Distress, Well-Nourished, Ill-Appearing - MILD Vital Signs: Initial Vital Signs Temp 98 F 08/16/19 09:07 Pulse 92 08/16/19 09:07 Resp 16 08/16/19 09:07 BP 104/71 08/16/19 09:07 Pulse Ox 99 08/16/19 09:07 Vital Signs Reviewed: Yes Eye Exam: Normal Eyes: Positive: Conjunctiva Clear ENT: Positive: Nasal drainage Neck: Positive: Supple Respiratory: Positive: No respiratory distress Musculoskeletal: Positive: Strength Intact, ROM Intact Neurological: Positive: Alert Psychological: Positive: Age Appropriate Behavior Throat Pain/Nasal Course/Dx - Course Course Of Treatment: Strep was positive patient's being appropriately treated with azithromycin. Influenza was negative. [place] 19 was sent. Patient's going to be in self- isolation. Follow[facility]up with [facility]. Go to the emergency department if worse. - Differential Dx/Diagnosis Provider Diagnosis: Strep pharyngitis, Upper respiratory infection Discharge ED - Sign-Out/Discharge Documenting (check all that apply): Patient Departure All imaging exams completed and their final reports reviewed: No Studies - Discharge Plan Condition: Stable Disposition: HOME Patient Education Materials: Strep Throat (ED), Upper Respiratory Infection (ED ) Forms: *Work Release Referrals: Stacia Glaser MD [Primary Care Provider] - [facility] Dept [Outside] Additional Instructions: PLACE YOURSELF IN HOME ISOLATION. [facility]PART[facility] WILL CONTACT YOU. CONTACT THEM TOMORROW IF YOU HAVE NOT HEARD FROM THEM. FOLLOW UP WITH YOUR DOCTOR IF NOT COMPLETELY IMPROVED. GO TO THE EMERGENCY DEPARTMENT IF NOT IMPROVED OR WORSE OR ANY QUESTIONS OR CONCERNS. - Billing Disposition and Condition Condition: STABLE Disposition: Home
== END 2019-08-16 09:35 | disposition home or self-care (01) ==
LOC: UCEAST 08:16
DX: J02.0 Streptococcal pharyngitis (principal); Z20.828 Contact with and (suspected) exposure to other viral communicable diseases; E03.9 Hypothyroidism, unspecified; Z79.890 Hormone replacement therapy; Z88.8 Allergy status to other drugs, medicaments and biological substances
CPT/HCPCS: 87651; 99212; G0463; U0002